=== PATIENT | female | born 1995 | race Caucasian/White ===

== ENCOUNTER 2018-12-20 00:40 | Emergency (ER) | payer MEDICAID ==
[~2018-12-20] VITALS: Ht 162.6 cm; Wt 80.3 kg
[2018-12-20 00:59] VITALS: Ht 162.6 cm; Wt 80.3 kg
[2018-12-20 01:37] VITALS: BP 124/74
== END 2018-12-20 01:37 | disposition left against medical advice (07) ==
LOC: ED 00:40
DX: N34.2 Other urethritis (principal); N89.8 Other specified noninflammatory disorders of vagina
CPT/HCPCS: 87491; 87591

== ENCOUNTER 2018-12-27 05:20 | Emergency (ER) | payer MEDICAID ==
[~2018-12-27] VITALS: Ht 162.6 cm; Wt 82.2 kg
[2018-12-27 05:22] VITALS: Ht 162.6 cm; Wt 82.2 kg
[2018-12-27 06:40] VITALS: BP 107/66
== END 2018-12-27 06:40 | disposition home or self-care (01) ==
LOC: ED 05:20
DX: N89.8 Other specified noninflammatory disorders of vagina (principal); R05 Cough
CPT/HCPCS: 87491; 87591; J0696

== ENCOUNTER 2019-06-06 21:59 | Emergency (ER) | payer MEDICAID ==
[~2019-06-06] VITALS: Ht 167.6 cm; Wt 79.4 kg
[2019-06-06 22:07] VITALS: Ht 167.6 cm; Wt 79.4 kg
[2019-06-07 00:55] VITALS: BP 130/73
== END 2019-06-07 00:55 | disposition home or self-care (01) ==
LOC: ED 21:59
DX: J02.9 Acute pharyngitis, unspecified (principal)
CPT/HCPCS: J1100; J1885